=== PATIENT | female | born 1960 | race Caucasian/White ===

== ENCOUNTER 2016-12-19 18:23 | Emergency (ER) | payer BC ==
[~2016-12-19] VITALS: Ht 170.2 cm; Wt 90.7 kg
[2016-12-19 18:23] VITALS: BP 161/83
[2016-12-19] MEDS ORDERED: NAPR375T2 (18:33)
[2016-12-19] MEDS ORDERED: LOSA50TA20 (18:33)
[2016-12-19] MEDS ORDERED: KLOR1CAP2 (18:33)
[2016-12-19] MEDS ORDERED: FURO20TA2 (18:33)
[2016-12-19] MEDS ORDERED: LANS30CA (18:33)
[2016-12-19] MEDS ORDERED: GABA-282 (18:33)
[2016-12-19] MEDS ORDERED: FLUT22IN (18:33)
[2016-12-19] MEDS ORDERED: FLUT1SPR2 (18:33)
[2016-12-19] MEDS ORDERED: LEVO25TA5 (18:33)
[2016-12-19] MEDS ORDERED: PROA1AER (18:33)
[2016-12-19] MEDS ORDERED: MONT10TA2 (18:33)
== END 2016-12-19 20:08 | disposition left against medical advice (07) ==
LOC: M ED 19:07
DX: K62.89 Other specified diseases of anus and rectum (principal); Z53.21 Procedure and treatment not carried out due to patient leaving prior to being seen by health care provider

== ENCOUNTER → 2017-04-08 | Outpatient (CLI) | payer BC ==
[~2017-04-08] MED LIST: FLUT1SPR2; FLUT22IN; FURO20TA2; GABA-282; KLOR1CAP2; LANS30CA; LEVO25TA5; LOSA50TA20; MONT10TA2; NAPR-855; PROAAER10
--- NOTE | 2017-04-08 16:09 | REPMRS ---
Patient History The patient states she had a clinical breast exam in Patient is postmenopausal. Family history of breast cancer in paternal aunt under age 50. Digital Woman Screen Mammo: April 08, 2017 - Exam #: [id number] Bilateral CC and MLO view(s) were taken. Technologist: Janna Parnell, Technologist Prior study comparison: March 29, 2016, digital woman screen mammo performed at [facility] to [facility]. February 21, 2015, digital woman screen mammo performed at [facility] to [facility]. FINDINGS: There are scattered fibroglandular densities. There has been no change in the appearance of the mammogram from the prior studies. There is a mild amount of residual fibroglandular tissue which is fairly symmetric. There is no interval development of dominant mass, architectural distortion, or clustered microcalcification suggestive of malignancy. ASSESSMENT: BI-RADS/ACR category 1 mammogram. Negative. Recommendation Routine screening mammogram in 1 year (for women over age 40). This mammogram was interpreted with the aid of an FDA-approved computer-aided dectection system. Electronically Signed By: Son Colon MD 04/08/17 1200
== END ==
LOC: M WHC 15:06
PROVIDERS: ATTEND Nurse Practitioner Family
DX: Z12.31 Encounter for screening mammogram for malignant neoplasm of breast (principal); Z78.0 Asymptomatic menopausal state

== ENCOUNTER → 2018-03-01 | Outpatient (REF) | payer BC ==
[2018-03-10 00:12] LABS: CALPROTECTIN STOOL 57 ug/g (0-120)
[2018-03-10 00:12] LABS: PANCREATIC ELASTASE STOOL >500 (>200)
== END ==
LOC: M LAB REF 08:00
DX: K76.0 Fatty (change of) liver, not elsewhere classified (principal); R19.7 Diarrhea, unspecified; R19.5 Other fecal abnormalities
CPT/HCPCS: 83993

== ENCOUNTER → 2018-07-31 | Outpatient (CLI) | payer BC | LOC: M WHC 15:04 | DX: Z12.31 Encounter for screening mammogram for malignant neoplasm of breast (principal); Z80.3 Family history of malignant neoplasm of breast | CPT/HCPCS: 77067 ==

== ENCOUNTER 2018-11-12 10:40 | Emergency (ER) | payer BC ==
[~2018-11-12] VITALS: Ht 170.2 cm; Wt 81.8 kg
[~2018-11-12 10:40] MED LIST changes: -GABA-282; +GABA-843; -LOSA50TA20; +LOSA50TA88
[2018-11-12] MEDS ORDERED: DICY20TA PO (10:45)
[2018-11-12 11:36] LABS: APPEARANCE, URINE CLEAR (CLEAR); BACTERIA, URINE AUTO NEGATIVE (NEGATIVE); BILIRUBIN, URINE AUTO NEGATIVE (NEGATIVE); BLOOD, URINE BLOOD NEGATIVE (NEGATIVE); COLOR, URINE YELLOW (YELLOW); GLUCOSE, URINE (UA) AUTO NEGATIVE (NEGATIVE); KETONE, URINE AUTO NEGATIVE (NEGATIVE); LEUKOCYTE ESTERASE, URINE AUTO NEGATIVE (NEGATIVE); MUCUS, URINE SMALL (NEGATIVE); NITRITE, URINE AUTO NEGATIVE (NEGATIVE); PROTEIN, URINE AUTO NEGATIVE (NEGATIVE); RBC, URINE AUTO 1 /HPF (0-3); SPECIFIC GRAVITY URINE AUTO 1.024 (1.002-1.035); SQUAMOUS EPITHELIAL CELL UR AU 1 /HPF (0-6); WBC, URINE AUTO 0 /HPF (0-3)
[2018-11-12 11:37] LABS: BASO # 0.1 10^3/uL (0.0-0.2); BASO % 0.9 % (0.0-1.0); EOS # 0.1 10^3/uL (0.0-0.50); EOS % 1.3 % (0.0-3.0); HEMATOCRIT 41.5 % (36.0-47.0); HEMOGLOBIN 13.5 g/dl (12.0-15.5); LYMPH # 1.5 10^3/uL (1.5-4.5); LYMPH % 19.9 % (24.0-44.0); MEAN CORPUSCULAR HEMOGLOBIN 29.4 pg (27.0-33.0); MEAN CORPUSCULAR HGB CONC 32.5 g/dl (32.0-36.5); MEAN CORPUSCULAR VOLUME 90.4 fl (80.0-96.0); MONO # 0.7 10^3/uL (0.0-0.8); MONO % 8.6 % (0.0-5.0); NEUTROPHILS # 5.2 10^3/uL (1.8-7.7); NEUTROPHILS % 68.9 % (36.0-66.0); PLATELET COUNT, AUTOMATED 180 10^3/uL (150-450); RED BLOOD COUNT 4.59 10^6/uL (4.00-5.40); WHITE BLOOD COUNT 7.6 10^3/uL (4.0-10.0)
[2018-11-12] MEDS: GASTROGRAFIN SOLUTION 30ML PO SCH ×2 (11:43→12:12)
[2018-11-12 12:01] LABS: ALBUMIN 4.1 GM/DL (3.2-5.2); ALT/SGPT 24 U/L (12-78); BILIRUBIN,TOTAL 0.6 MG/DL (0.2-1.0); BLOOD UREA NITROGEN 13 MG/DL (7-18); CALCIUM LEVEL 8.5 MG/DL (8.5-10.1); CARBON DIOXIDE LEVEL 32 MEQ/L (21-32); CHLORIDE LEVEL 107 MEQ/L (98-107); CREATININE FOR GFR 0.67 MG/DL (0.55-1.30); FERRITIN 183 NG/ML (8-252); GLOMERULAR FILTRATION RATE > 60.0 (>51); GLUCOSE, FASTING 105 MG/DL (70-100); POTASSIUM SERUM 3.8 MEQ/L (3.5-5.1); SODIUM LEVEL 143 MEQ/L (136-145); TOTAL PROTEIN 7.5 GM/DL (6.4-8.2)
[2018-11-12] MEDS ORDERED: ISOVUE-370 76% 125ML VIAL (Q9967 PER ML) As Ordered ONE (12:56)
[2018-11-12] MEDS ORDERED: PROC1AER16 PR (13:52)
[2018-11-12] MEDS ORDERED: COLA100C5 PO (13:52)
--- NOTE | 2018-11-12 13:55 | REP ---
CT ABDOMEN AND PELVIS WITH CONTRAST: HISTORY: Rectal bleed. CONTRAST: Isovue 370, 100 mL. COMPARISON: 05/19/2011 The liver, gallbladder, pancreas, spleen, adrenal glands and kidneys are normal in appearance. There is no mass, adenopathy or free fluid. Diverticula are present in the descending and sigmoid colon. The visualized lungs are clear. The patient is status post hysterectomy. The urinary bladder is normal in appearance. The appendix is not seen. Degenerative change is present in the spine. There is no fracture or subluxation. IMPRESSION: 1. Diverticulosis. 2. The patient is status post hysterectomy. Electronically Signed by Issac Nicole MD 11/12/2018 02:31 P
[2018-11-12 14:06] VITALS: BP 116/62
== END 2018-11-12 14:07 | disposition home or self-care (01) ==
LOC: M ED 10:40
DX: K57.90 Diverticulosis of intestine, part unspecified, without perforation or abscess without bleeding (principal); K64.8 Other hemorrhoids; I10 Essential (primary) hypertension; K58.9 Irritable bowel syndrome, unspecified; F41.9 Anxiety disorder, unspecified; K76.0 Fatty (change of) liver, not elsewhere classified; Z79.899 Other long term (current) drug therapy; Z79.890 Hormone replacement therapy
CPT/HCPCS: 36415; 74177; 80053; 81001; 82728; 85025; 99284; Q9963; Q9967

== ENCOUNTER → 2018-12-04 | Outpatient (CLI) | payer BC, OTHER ==
[~2018-12-04] MED LIST changes: +COLA100C5 PO; +DICY20TA PO; +PROC1AER16 PR
--- NOTE | 2018-12-05 09:32 | REP ---
Clinical: Cough . Comparison: 04/29/2015 . Technique: PA and lateral. Findings: The mediastinum and cardiac silhouette are normal. The lung ayala are clear and without acute consolidation, effusion, or pneumothorax. The skeletal structures are intact and normal. Impression: 1. No acute cardiopulmonary process. Electronically Signed by Oracio Allen MD 12/05/2018 09:23 A
== END ==
LOC: M WUC 12:30
PROVIDERS: ATTEND Physician Assistant
DX: R05 Cough (principal)

== ENCOUNTER → 2019-08-01 | Outpatient (CLI) | payer BC ==
--- NOTE | 2019-08-02 09:06 | REPMRS ---
Patient History The patient states she had a clinical breast exam in July 2019.Family history of breast cancer under age 50 in paternal aunt. No Hormone Replacement Therapy 3D TOMOSYNTHESIS WAS PERFORMED. The Marika Barrera lifetime risk for breast cancer is 9.0%. Digital Woman Screen Mammo: August 01, 2019 - Exam #: [id number] Bilateral CC and MLO view(s) were taken. Technologist: Francia Currie, Technologist Prior study comparison: July 31, 2018, bilateral digital woman screen mammo performed at [facility]. April 08, 2017, digital woman screen mammo performed at [facility]. FINDINGS: The breast tissue is heterogeneously dense. This may lower the sensitivity of mammography. There has been no change in the appearance of the mammogram from the prior studies. There is a moderate amount of residual fibroglandular tissue which is fairly symmetric. There is no interval development of dominant mass, areas of architectural distortion, or clustered microcalcification typical of malignancy. Assessment: BI-RADS/ACR category 1 mammogram. Negative Mammogram. Recommendation Routine screening mammogram in 1 year (for women over age 40). This mammogram was interpreted with the aid of an FDA-approved computer-aided dectection system. Electronically Signed By: Son Colon MD 08/02/19 0906
== END ==
LOC: M WHC 15:31
PROVIDERS: ATTEND Nurse Practitioner Family
DX: Z12.31 Encounter for screening mammogram for malignant neoplasm of breast (principal)

== ENCOUNTER → 2020-02-13 | Outpatient (REF) | payer BC ==
[~2020-02-13] MED LIST changes: -DICY20TA PO; +DICY20TA3 PO; +GABA-282; -GABA-843; +MONT10TA10; -MONT10TA2
[2020-02-13 14:07] LABS: INR 0.96; PROTHROMBIN TIME 12.5 SECONDS (11.8-14.0)
== END ==
LOC: M LAB REF 11:50
PROVIDERS: ATTEND Internal Medicine
DX: K76.0 Fatty (change of) liver, not elsewhere classified (principal)

== ENCOUNTER → 2020-08-06 | Outpatient (CLI) | payer BC ==
[~2020-08-06] MED LIST changes: +DICY20TA PO; -DICY20TA3 PO; -GABA-282; +GABA-843; -MONT10TA10; +MONT5TAB2
--- NOTE | 2020-08-06 10:22 | REPMRS ---
Patient History The patient states she had a clinical breast exam in July 2020.Family history of breast cancer under age 50 in paternal aunt. No Hormone Replacement Therapy Digital Woman Screen Mammo: August 06, 2020 - Exam #: [id number] Bilateral CC and MLO view(s) were taken. Technologist: Francia Currie, Technologist Prior study comparison: August 01, 2019, bilateral digital woman screen mammo performed at [facility]. July 31, 2018, bilateral digital woman screen mammo performed at [facility]. April 08, 2017, digital woman screen mammo performed at [facility]. FINDINGS: There are scattered fibroglandular densities. The Volpara volumetric breast density category is:B. There has been no change in the appearance of the mammogram from the prior studies. There is a mild amount of scattered fibroglandular density which is fairly symmetric. There is no interval development of dominant mass, architectural distortion, or grouped microcalcification suggestive of malignancy. 3-D tomosynthesis shows no additional findings. Assessment: BI-RADS/ACR category 1 mammogram. Negative Mammogram. Recommendation Routine screening mammogram of both breasts in 1 year (for women over age 40). This patient's [facility] Lifetime Breast Cancer Risk is estimated at 8.7 %. This mammogram was interpreted with the aid of an FDA-approved computer-aided dectection system. Electronically Signed By: Shaji Cruz MD 08/06/20 2430
== END ==
LOC: M WHC 08:13
PROVIDERS: ATTEND Nurse Practitioner Family
DX: Z12.31 Encounter for screening mammogram for malignant neoplasm of breast (principal)

== ENCOUNTER → 2021-09-24 | Outpatient (CLI) | payer BC ==
[~2021-09-24] MED LIST changes: -DICY20TA PO; +DICY20TA3 PO; +GABA-282; -GABA-843; +LOSA50TA28; -LOSA50TA88; +MONT10TA97; -MONT5TAB2
== END ==
LOC: M WHC 15:54
PROVIDERS: ATTEND Advanced Practice Midwife
DX: Z12.31 Encounter for screening mammogram for malignant neoplasm of breast (principal)

== ENCOUNTER → 2021-10-23 | Outpatient (REF) | payer BC | LOC: M LAB REF 11:57 | PROVIDERS: ATTEND Internal Medicine | DX: G60.9 Hereditary and idiopathic neuropathy, unspecified (principal) ==

== ENCOUNTER → 2022-04-01 | Outpatient (CLI) | payer BC | LOC: M LAB 08:16 | PROVIDERS: ATTEND Physician Assistant | DX: K76.0 Fatty (change of) liver, not elsewhere classified (principal); K29.70 Gastritis, unspecified, without bleeding ==

== ENCOUNTER → 2022-05-27 | Outpatient (CLI) | payer BC ==
[~2022-05-27] MED LIST changes: +GASTROGRAFIN SOLUTION 30ML (Q9963) As Ordered ONE; +ISOVUE-370 76% 100ML VIAL As Ordered ONE
== END ==
LOC: M RAD 07:27
PROVIDERS: ATTEND Internal Medicine
DX: R10.30 Lower abdominal pain, unspecified (principal)
CPT/HCPCS: 74177; Q9963; Q9967

== ENCOUNTER → 2022-10-12 | Outpatient (CLI) | payer BC ==
[~2022-10-12] MED LIST changes: -GASTROGRAFIN SOLUTION 30ML (Q9963) As Ordered ONE; -ISOVUE-370 76% 100ML VIAL As Ordered ONE
== END ==
LOC: M WHC 08:22
PROVIDERS: ATTEND Advanced Practice Midwife
DX: Z12.31 Encounter for screening mammogram for malignant neoplasm of breast (principal); R92.2 Inconclusive mammogram

== ENCOUNTER → 2022-11-02 | Outpatient (CLI) | payer BC | LOC: M WHC 14:08 | PROVIDERS: ATTEND Advanced Practice Midwife | DX: R92.2 Inconclusive mammogram (principal) | CPT/HCPCS: 77065; G0279 ==

== ENCOUNTER → 2023-01-06 | Outpatient (CLI) | payer BC | LOC: M WUC 10:13 | PROVIDERS: ATTEND Physician Assistant | DX: K76.0 Fatty (change of) liver, not elsewhere classified (principal); R10.9 Unspecified abdominal pain; R12 Heartburn; K29.70 Gastritis, unspecified, without bleeding ==

== ENCOUNTER → 2023-10-25 | Outpatient (CLI) | payer BC | LOC: M WHC 08:20 | PROVIDERS: ATTEND Advanced Practice Midwife | DX: R92.8 Other abnormal and inconclusive findings on diagnostic imaging of breast (principal) ==

== ENCOUNTER → 2023-11-02 | Outpatient (CLI) | payer BC | LOC: M WHC 07:53 | PROVIDERS: ATTEND Advanced Practice Midwife | DX: R92.8 Other abnormal and inconclusive findings on diagnostic imaging of breast (principal) | CPT/HCPCS: 77065; G0279 ==

== ENCOUNTER → 2024-04-03 | Outpatient (CLI) | payer BC ==
[~2024-04-03] MED LIST changes: +E-Z-GAS II EFFERVESCENT PACKET (SODIUM BICARB./CITRIC ACID/SIMETHICONE) As Ordered ONE; +E-Z-HD 98% w/w 340GM SUSP BTL As Ordered ONE; +E-Z-PAQUE 96% w/w SUSP 176GM BTL As Ordered ONE
== END ==
LOC: M RAD 07:28
PROVIDERS: ATTEND Physician Assistant
DX: K76.0 Fatty (change of) liver, not elsewhere classified (principal); K44.9 Diaphragmatic hernia without obstruction or gangrene; K29.70 Gastritis, unspecified, without bleeding; K59.00 Constipation, unspecified; R10.13 Epigastric pain

== ENCOUNTER → 2024-11-19 | Outpatient (REF) | payer OTHER ==
[~2024-11-19] MED LIST changes: -E-Z-GAS II EFFERVESCENT PACKET (SODIUM BICARB./CITRIC ACID/SIMETHICONE) As Ordered ONE; -E-Z-HD 98% w/w 340GM SUSP BTL As Ordered ONE; -E-Z-PAQUE 96% w/w SUSP 176GM BTL As Ordered ONE; +GABA-1172; -GABA-282
== END ==
LOC: M LAB REF 12:19
PROVIDERS: ATTEND Internal Medicine
DX: M15.9 Polyosteoarthritis, unspecified (principal)

== ENCOUNTER → 2024-11-29 | Outpatient (CLI) | payer OTHER | LOC: M RAD 15:29 | PROVIDERS: ATTEND Internal Medicine | DX: K57.30 Diverticulosis of large intestine without perforation or abscess without bleeding (principal); R10.12 Left upper quadrant pain ==

== ENCOUNTER → 2025-03-26 | Outpatient (CLI) | payer OTHER | LOC: M WHC 11:13 | PROVIDERS: ATTEND Advanced Practice Midwife | DX: Z12.31 Encounter for screening mammogram for malignant neoplasm of breast (principal) ==